=== PATIENT | male | born 1950 | race African-American/Black ===

== ENCOUNTER 2017-04-07 16:17 | Emergency (ER) | payer OTHER ==
[2017-04-07 17:40] LABS: ADD MAN DIFF? NO; AGAP ISTAT 17 mmol/L (6-14); BUN ISTAT 11 mg/dL (8-26); CHLORIDE ISTAT 90 mmol/L (98-110); CREATININE ISTAT 0.7 mg/dL (0.5-1.4); GLUCOSE ISTAT 117 mg/dL (70-99); HEMATOCRIT ISTAT 46 % (37-52); HEMOGLOBIN ISTAT 15.6 g/dL (14-18); ION CA ISTAT 1.14 mmol/L (1.13-1.32); POTASSIUM ISTAT 3.4 mmol/L (3.5-5.0); SODIUM ISTAT 138 mmol/L (135-145); TOT CO2 ISTAT 35 mmol/L (23-32)
[2017-04-07 17:42] LABS: BASO % 1 % (0-3); EOS % 0 % (0-3); HEMATOCRIT 44.8 % (39.0-53.0); HEMOGLOBIN 15.1 g/dL (13.0-17.5); LYMPH # 0.4 x10^3/uL (1.0-4.8); LYMPH % 12 % (24-48); MEAN CORPUSCULAR HEMOGLOBIN 28 pg (25-35); MEAN CORPUSCULAR HGB CONC 34 g/dL (31-37); MEAN CORPUSCULAR VOLUME 83 fL (79-100); MONO # 0.3 x10^3/uL (0.0-1.1); MONO % 9 % (0-9); NEUT # 2.7 x10^3uL (1.8-7.7); NEUT % 77 % (31-73); PLATELET COUNT 466 x10^3/uL (140-400); RED BLOOD COUNT 5.41 x10^6/uL (4.30-5.70); RED CELL DISTRIBUTION WIDTH 14.9 % (11.5-14.5); WHITE BLOOD COUNT 3.5 x10^3/uL (4.0-11.0)
[2017-04-07] MEDS: IV NORMAL SALINE 1000ML BAG 1,000 ML IV (17:45)
[2017-04-07] MEDS: HYDROmorphone 2 MG/ML VIAL IV (17:45)
[2017-04-07 18:10] LABS: ANION GAP 9 (6-14); BLOOD UREA NITROGEN 12 mg/dL (8-26); BUN/CREATININE RATIO 17 (6-20); CALCIUM 9.2 mg/dL (8.5-10.1); CARBON DIOXIDE 34 mmol/L (21-32); CHLORIDE 97 mmol/L (98-107); CREATININE 0.7 mg/dL (0.7-1.3); GFR 135.7; GLUCOSE 119 mg/dL (70-99); POTASSIUM 3.7 mmol/L (3.5-5.1); SODIUM 140 mmol/L (136-145)
[2017-04-07 18:17] LABS: ALBUMIN 3.1 g/dL (3.4-5.0); ALBUMIN/GLOBULIN RATIO 0.9 (1.0-1.7); ALK PHOS 115 U/L (46-116); ALT (SGPT) 15 U/L (16-63); AST (SGOT) 26 U/L (15-37); LIPASE 68 U/L (73-393); TOTAL BILIRUBIN 0.4 mg/dL (0.2-1.0); TOTAL PROTEIN 6.7 g/dL (6.4-8.2)
[2017-04-07] MEDS: IOHEXOL 300 MG/ML 100ML VIAL. IV (18:26)
[2017-04-07] MEDS ORDERED: CONTRAST GIVEN MC (18:30)
[2017-04-07 20:33] LABS: BILIRUBIN,URINE NEGATIVE (NEG); COLOR,URINE YELLOW; GLUCOSE,URINE NEGATIVE (NEG); NITRITE,URINE NEGATIVE (NEG); PROTEIN,URINE 30 mg/dL (NEG-TRACE); UROBILINOGEN,URINE 0.2 mg/dL (0.2 mg/dL)
[2017-04-07 20:38] LABS: CLARITY,URINE CLEAR
[2017-04-07 20:41] LABS: BACTERIA,URINE 0 /HPF (0-FEW); SQUAMOUS EPITHELIAL CELL,UR OCC /LPF; WBC,URINE 0 /HPF (0-4)
== END 2017-04-07 21:40 | disposition home or self-care (01) ==
LOC: ER 21:40
DX: K59.00 Constipation, unspecified (principal); R10.9 Unspecified abdominal pain
CPT/HCPCS: 36415; 74177; 80047; 80053; 81001; 83690; 85025; 96361; 96374; 99285-25; J1170; J7030; Q9967